=== PATIENT | female | born 1950 | race Caucasian/White ===

== ENCOUNTER 2021-07-31 05:57 | Observation (INO) ==
[2021-07-27 12:09] LABS: Basophils # 0.1 10*3/uL (0.0-0.2); Basophils % 0.7 % (0.0-0.8); Eosinophils # 0.2 10*3/uL (0.0-0.87); Eosinophils % 2.3 % (0.00-10.9); Hematocrit 42.2 VOL% (35.7-47.0); Hemoglobin 13.7 GM/DL (12.0-16.0); Immature Granulocytes % 0.7 %; Immature Granulocytes Absolute 0.06 #; Lymphocytes % 24.2 % (21.3-54.2); Mean Corpuscular HGB Conc 32.5 GM/DL (32-36); Mean Corpuscular Volume 101.9 FL (87-102); Monocytes # 0.7 10*3/uL (0.11-0.8); Neutrophils % 63.1 % (38.7-73.9); Platelet Count 190 T/CUMM (130-400); Red Blood Count 4.14 MC/CUMM (3.8-5.5); Red Cell Distribution Width 12.4 % (9.3-17.3); White Blood Count 8.1 T/CUMM (4-12)
[2021-07-27 12:21] LABS: INR 0.9; PT Patient Result 9.9 SECS (10.5-12.0); Partial Thromboplastin Time 21.4 SECS (23.8-32.1)
[2021-07-27 12:29] LABS: Bacteria,Urine Occasional /HPF (Few); RBC,Urine 1 /HPF (0-4); Squamous Epithelial Cell,Urine Occasional /HPF (0-10)
[2021-07-27 12:30] LABS: Bilirubin,Urine Negative (Negative); Blood, Urine Negative (Negative); Glucose,Urine (UA) >=1000 mg/dL (Negative); Ketones,Urine Negative (Negative); Nitrite,Urine Negative (Negative); Protein,Urine Negative (Negative); Urine Appearance Clear (Clear); Urine Color Yellow (Yellow); Urine Specific Gravity 1.015 (1.001-1.035); Urine Urobilinogen 0.2 eU/dL (<2.0); Urine pH 5.5 (4.5-8.0)
[2021-07-27 12:49] LABS: Albumin 3.5 G/DL (3.4-5.0); Bilirubin,Total 0.5 MG/DL (0.20-1.00); Calcium 10.6 MG/DL (8.5-10.1); Osmolality,Calculated 281.7 MOS/KG (273-304); Potassium 4.5 MMOL/L (3.5-5.1); Total Protein 7.2 G/DL (6.4-8.2)
[2021-07-31] MEDS ORDERED: VANCOMYCIN INJ 1,000 MG in SODIUM CHLORIDE 0.9% 250 ML IV ONE (06:00)
[2021-07-31] MEDS ORDERED: ceFAZolin 2,000 MG/50 ML DUPLEX IV ONE (06:00)
[2021-07-31] MEDS ORDERED: ACETAMINOPHEN 500 MG TABLET PO STA (06:57)
[2021-07-31] MEDS ORDERED: DIAZEPAM 5 MG TABLET PO STA (06:57)
[2021-07-31] MEDS ORDERED: GABAPENTIN 400 MG CAPSULE PO STA (06:58)
[2021-07-31] MEDS ORDERED: GABAPENTIN 400 MG CAPSULE ONE (07:00)
[2021-07-31] MEDS ORDERED: ACETAMINOPHEN 500 MG TABLET ONE (07:00)
[2021-07-31] MEDS ORDERED: LACTATED RINGERS 1,000 ML IV SCH (07:00)
[2021-07-31] MEDS ORDERED: MIDAZOLAM 2 MG/2 ML VIAL ONE (08:54)
[2021-07-31] MEDS ORDERED: fentaNYL 100 MCG/2 ML VIAL ONE (08:54)
[2021-07-31] MEDS ORDERED: buprenorphine HCL 0.3 MG/ML VIAL ONE (08:56)
[2021-07-31] MEDS ORDERED: DEXAMETHASONE 4 MG/1 ML VIAL ONE (09:01)
[2021-07-31] MEDS ORDERED: LIDOCAINE 1% 5 ML VIAL ONE (09:01)
[2021-07-31] MEDS ORDERED: ROPIVACAINE 0.5% 30 ML VIAL ONE (09:02)
[2021-07-31] MEDS ORDERED: BACITRACIN OINT 0.9 GM PACK TOP ONE (09:21)
[2021-07-31] MEDS ORDERED: SCOPOLAMINE 1.5 MG PATCH TRANSDERM ONE (09:23)
[2021-07-31] MEDS ORDERED: SODIUM CHLORIDE 0.9% 250 ML IV ONE (11:12)
[2021-07-31] MEDS ORDERED: propofoL 200 MG/20 ML VIAL IV ONE (11:12)
[2021-07-31] MEDS ORDERED: GLYCOPYRROLATE 0.4 MG/2 ML VIAL ONE (11:12)
[2021-07-31] MEDS ORDERED: TRANEXAMIC ACID 1,000 MG/10 ML VIAL ONE (11:13)
[2021-07-31] MEDS ORDERED: MAGNESIUM HYDROXIDE SUSP 30 ML UDCUP PO PRN (11:30)
[2021-07-31] MEDS ORDERED: diphenhydrAMINE CAP 25 MG CAPSULE PO PRN (11:30)
[2021-07-31] MEDS ORDERED: MORPHINE 2 MG/1 ML SYRINGE IV PRN ×2 (11:30)
[2021-07-31] MEDS ORDERED: ONDANSETRON 4 MG/2 ML VIAL IV PRN (11:30)
[2021-07-31] MEDS ORDERED: ZALEPLON 5 MG CAPSULE PO PRN (11:30)
[2021-07-31] MEDS ORDERED: DEXTROSE 10% 250 ML BAG IV PRN (11:32)
[2021-07-31] MEDS ORDERED: GLUCAGON 1 MG VIAL IM PRN (11:32)
[2021-07-31] MEDS ORDERED: KETOROLAC 30 MG/1 ML VIAL ONE (11:52)
[2021-07-31] MEDS: KETOROLAC 15 MG/1 ML VIAL IV SCH ×2 (13:50→20:59)
[2021-07-31] MEDS: LACTATED RINGERS 1,000 ML IV SCH ×2 (14:50→21:57)
[2021-07-31] MEDS: INSULIN LISPRO 100 UNIT/ML SUBCUT SCH ×2 (17:12→20:59)
[2021-07-31] MEDS: ceFAZolin 2,000 MG/50 ML DUPLEX IV SCH (18:06)
[2021-07-31] MEDS ORDERED: EZETIMIBE 10 MG TABLET PO SCH (21:00)
[2021-07-31] MEDS ORDERED: NON-FORMULARY MEDICATION (Empagliflozin [Jardiance] 10 mg Tablet) PO SCH (21:00)
[2021-07-31] MEDS: DOCUSATE SODIUM 100 MG CAPSULE PO SCH (21:01)
[2021-07-31] MEDS: OMEGA 3 ACID ETHYL ESTERS 1 GM CAPSULE PO SCH (21:01)
[2021-07-31] MEDS: POTASSIUM CHLORIDE 20 MEQ TABLET PO SCH (21:01)
[2021-08-01] MEDS ORDERED: ceFAZolin 2,000 MG/50 ML DUPLEX IV ONE (01:50)
[2021-08-01] MEDS: ceFAZolin 2,000 MG/50 ML DUPLEX IV SCH (01:53)
[2021-08-01] MEDS: KETOROLAC 15 MG/1 ML VIAL IV SCH (01:54)
[2021-08-01 05:04] LABS: Basophils % 0.1 % (0.0-0.8); Eosinophils % 0.3 % (0.00-10.9); Hematocrit 36.6 VOL% (35.7-47.0); Hemoglobin 11.8 GM/DL (12.0-16.0); Immature Granulocytes % 0.7 %; Immature Granulocytes Absolute 0.08 #; Lymphocytes # 1.4 10*3/uL (1.4-4.0); Lymphocytes % 11.5 % (21.3-54.2); Mean Corpuscular HGB Conc 32.2 GM/DL (32-36); Mean Corpuscular Volume 103.4 FL (87-102); Mean Platelet Volume 11.5 FL (9.6-12.0); Monocytes # 1.2 10*3/uL (0.11-0.8); Monocytes % 9.5 % (1.7-12.7); Neutrophils % 77.9 % (38.7-73.9); Platelet Count 154 T/CUMM (130-400); Red Blood Count 3.54 MC/CUMM (3.8-5.5); Red Cell Distribution Width 12.4 % (9.3-17.3); White Blood Count 12.3 T/CUMM (4-12)
[2021-08-01 05:19] LABS: Calcium 9.2 MG/DL (8.5-10.1); Osmolality,Calculated 283.4 MOS/KG (273-304); Potassium 4.8 MMOL/L (3.5-5.1)
[2021-08-01] MEDS ORDERED: FONDAPARINUX 2.5 MG/0.5 ML SYRINGE SUBCUT SCH (05:30)
[2021-08-01] MEDS: LACTATED RINGERS 1,000 ML IV SCH (06:16)
[2021-08-01] MEDS ORDERED: LEVOTHYROXINE 88 MCG TABLET PO SCH (07:00)
[2021-08-01] MEDS ORDERED: CHOLECALCIFEROL 1,000 UNIT TABLET PO SCH (09:00)
[2021-08-01] MEDS ORDERED: METOPROLOL SUCCINATE XL 50 MG TABLET PO SCH (09:00)
[2021-08-01] MEDS ORDERED: metFORMIN 500 MG TABLET PO SCH (09:00)
[2021-08-01] MEDS ORDERED: ESTROGENS (CONJ) 0.625 MG TABLET PO SCH (09:00)
[2021-08-01] MEDS ORDERED: CYANOCOBALAMIN 500 MCG TABLET PO SCH (09:00)
[2021-08-01] MEDS ORDERED: CHLORTHALIDONE 25 MG TABLET PO SCH (09:00)
[2021-08-01] MEDS ORDERED: PANTOPRAZOLE 20 MG TABLET PO SCH (09:00)
[2021-08-01] MEDS ORDERED: LOSARTAN 50 MG TABLET PO SCH (09:00)
[2021-08-01] MEDS: DOCUSATE SODIUM 100 MG CAPSULE PO SCH (09:44)
[2021-08-01] MEDS: POTASSIUM CHLORIDE 20 MEQ TABLET PO SCH (09:44)
[2021-08-01] MEDS: OMEGA 3 ACID ETHYL ESTERS 1 GM CAPSULE PO SCH (09:44)
[2021-08-01] MEDS: GABAPENTIN 100 MG CAPSULE PO SCH ×2 (09:44→12:52)
[2021-08-01] MEDS: INSULIN LISPRO 100 UNIT/ML SUBCUT SCH ×2 (09:53→12:36)
[2021-08-01 11:41] VITALS: BP 91/50
== END 2021-08-01 14:17 | disposition home or self-care (01) ==
LOC: N.OR 05:57 → N.SDSINP 05:57 → N.3E 15:17
PROVIDERS: ADMIT Orthopaedic Surgery; ATTEND Orthopaedic Surgery